=== PATIENT | female | born 1955 | race American Indian/Alaskan Native ===

== ENCOUNTER 2017-09-01 19:23 | Emergency (ER) | payer OTHER ==
[2017-09-01 19:44] VITALS: BP 125/54
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
[2017-09-02] MEDS ORDERED: MOTRIN PO ONE (00:44)
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
== END 2017-09-02 01:10 | disposition home or self-care (01) ==
LOC: ED 19:23
DX: S13.4XXA Sprain of ligaments of cervical spine, initial encounter (principal); S86.912A Strain of unspecified muscle(s) and tendon(s) at lower leg level, left leg, initial encounter; S86.911A Strain of unspecified muscle(s) and tendon(s) at lower leg level, right leg, initial encounter; V49.49XA Driver injured in collision with other motor vehicles in traffic accident, initial encounter; Y93.89 Activity, other specified; Y92.89 Other specified places as the place of occurrence of the external cause; Y99.8 Other external cause status